=== PATIENT | male | born 1950 | race Caucasian/White ===

== ENCOUNTER 2018-02-12 22:15 | Emergency (ER) | payer MEDICARE, BC ==
--- NOTE | 2018-02-12 23:26 | EDM.PDOC ---
ED HPI GENERAL MEDICAL PROBLEM - General Chief Complaint: Eye Problems Stated Complaint: SOMETHING IN RIGHT EYE Time Seen by Provider: 02/12/18 23:09 Source of Information: Reports: Patient, RN Notes Reviewed History Limitations: Reports: No Limitations - History of Present Illness INITIAL COMMENTS - FREE TEXT/NARRATIVE: 68-year-old gentleman presents emergency department with complaint of itchy uncomfortable right eye, he states is been ongoing for about a week worse today he was out biking today possibly some more exposure to dust and wind. Reports no troubles with his vision right eye Pain Score (Numeric/FACES): 6 - Related Data Allergies Allergy/AdvReac Type Severity Reaction Status Date / Time No Known Allergies Allergy Verified 02/12/18 22:47 Home Meds: Home Meds Simvastatin [Zocor] 40 mg PO BEDTIME 02/12/18 [History] metFORMIN [Glucophage] 850 mg PO DAILY 02/12/18 [History] Past Medical History Endocrine/Metabolic History: Reports: Diabetes, Type II Social & Family History - Tobacco Use Smoking Status *Q: Never Smoker - Caffeine Use Caffeine Use: Reports: Coffee - Recreational Drug Use Recreational Drug Use: No ED ROS GENERAL - Review of Systems Review Of Systems: See Below Constitutional: Reports: No Symptoms HEENT: Reports: Eye Pain. Denies: Eye Discharge ED EXAM GENERAL W FULL EYE - Physical Exam Exam: See Below Exam Limited By: No Limitations General Appearance: Alert, WD/WN, No Apparent Distress Eye Exam: Right Eye: Conjunctival Injection, Bilateral Eye: EOMI, Normal Inspection, PERRL Eyelids: Bilateral: Normal Appearance Conjunctiva & Sclera: Right: Conjunctival Edema, Injected, Left: Normal Appearance Cornea Exam: Right: Normal Appearance Extraocular Movements: Bilateral: Intact Pupillary Size: Bilateral: 5 mm Pupillary Reaction: Bilateral: Brisk Course - Vital Signs Last Recorded V/S: Last Vital Signs Temp 96.2 F 02/12/18 22:48 Pulse 62 02/12/18 22:48 Resp 18 02/12/18 22:48 BP 147/83 H 02/12/18 22:48 Pulse Ox 94 L 02/12/18 22:48 Departure - Departure Time of Disposition: 23:27 Disposition: Home, Self-Care 01 Condition: Good Clinical Impression: Itchy eyes - Discharge Information Referrals: PCP,None [Primary Care Provider] - Additional Instructions: Recommend lubricating eyedrops, please follow-up with your eye care provider on Wednesday, call return to the emergency department with worsening of symptoms - Assessment/Plan Plan: Assessment Acuity = acute Site and laterality = right eye irritation Etiology = unclear etiology Manifestations = none Location of injury = Home Lab values = none Plan No foreign body appreciated, no corneal ulcer noted I was flushed with copious amounts of fluid had short-term relief with tetracaine, plan follow-up with eye care provider on Wednesday of this week did discuss antibiotics he declined at this time This note was dictated using [employer] voice recognition software please call with any questions on syntax or grammar.
== END 2018-02-12 23:38 | disposition home or self-care (01) ==
LOC: JP.ED 22:15
DX: H57.8 Other specified disorders of eye and adnexa (principal); E11.9 Type 2 diabetes mellitus without complications; Z79.84 Long term (current) use of oral hypoglycemic drugs
CPT/HCPCS: 99283